=== PATIENT | male | born 1950 | race Caucasian/White ===

== ENCOUNTER 2023-09-15 05:35 | Day surgery (SDC) | payer OTHER ==
[2023-08-28 12:32] LABS: HEMATOCRIT 40.6 % (39.0-48.0); HEMOGLOBIN 13.9 g/dL (13-16.00); MEAN CELL VOLUME 93.7 fL (80.0-100.00); MEAN CORPUSCULAR HEMOGLOBIN 32.2 pg (27.00-32.0); MEAN CORPUSCULAR HGB CONC 34.3 g/dl (32.0-36.0); PLATELET COUNT 208 K/uL (150-450); RED BLOOD COUNT 4.33 M/uL (4.00-6.00)
[2023-08-28 12:40] LABS: INR 1.01; PARTIAL THROMBOPLASTIN TIME 25.1 SECONDS (22.0-34.0); PROTHROMBIN TIME 10.6 SECONDS (9.0-11.5)
[2023-08-28 12:52] LABS: CALCIUM 9.1 mg/dL (8.5-10.1); CREATININE SERUM 0.89 mg/dL (0.70-1.30); GFR 84.26; POTASSIUM 4.44 mEq/L (3.5-5.1)
[2023-08-28 13:18] LABS: URINE APPEARANCE Clear; URINE BILIRRUBIN Negative (NEGATIVE); URINE BLOOD Moderate; URINE COLOR Yellow; URINE GLUCOSE Negative (NEGATIVE); URINE LEUKOCYTE Trace; URINE NITRATE Negative; URINE PROTEIN Negative (NEGATIVE); URINE UROBILINOGEN 0.2 E.U./dl
[2023-08-28 13:19] LABS: URINE BACTERIA 13.8 uL (0.0-1933); URINE RBC 203.2 uL (0.0-20.8); URINE WBC 15.7 uL (0.0-23.2)
[2023-08-28 13:25] LABS: URINE EPITHELIAL CELLS 1.2 uL (0.0-38.8)
[~2023-09-15 05:35] MED LIST: ALEVE220 M1 PO; CEFADROXIL500 MG PO; FLORANEX TABLE1 EACH PO; PERCOCET 5/3251 TAB PO; TAMS0.4C PO
[2023-09-15] MEDS ORDERED: CHLORHEXIDINE GLUCONATE 120 ML BOTTLE TOP ONE (12:00)
[2023-09-15] MEDS ORDERED: GENTAMICIN SULFATE 40 MG/ML VIAL IV ONE (12:00)
== END 2023-09-15 16:35 | disposition home or self-care (01) ==
LOC: CIR.AMB 05:35
PROVIDERS: ATTEND Urology
DX: N40.1 Benign prostatic hyperplasia with lower urinary tract symptoms (principal); R33.9 Retention of urine, unspecified

== ENCOUNTER 2023-10-08 19:19 | Emergency (ER) | payer OTHER ==
[~2023-10-08] VITALS: Ht 182.9 cm; Wt 90.7 kg
[2023-10-08] MEDS ORDERED: TICAGRELOR 90 MG TABLET PO ONE (19:30)
[2023-10-08] MEDS ORDERED: 0.9 % SODIUM CHLORIDE 1,000 ML IV SCH (19:30)
[2023-10-08] MEDS ORDERED: MORPHINE SULFATE 4 MG/ML VIAL IV ONE (19:30)
[2023-10-08] MEDS ORDERED: ASPIRIN 325 MG TABLET PO ONE (19:30)
[2023-10-08] MEDS ORDERED: NITROGLYCERIN IN 5 % DEXTROSE 250 ML IV SCH (19:30)
[2023-10-08 19:59] LABS: HEMATOCRIT 41.2 % (39.0-48.0); HEMOGLOBIN 14.2 g/dL (13-16.00); MEAN CELL VOLUME 94.5 fL (80.0-100.00); MEAN CORPUSCULAR HEMOGLOBIN 32.6 pg (27.00-32.0); MEAN CORPUSCULAR HGB CONC 34.5 g/dl (32.0-36.0); PLATELET COUNT 271 K/uL (150-450); RED BLOOD COUNT 4.36 M/uL (4.00-6.00); RED CELL DISTRIBUTION WIDTH 12.6 % (11.5-14.5)
[2023-10-08] MEDS ORDERED: HEPARIN SODIUM,PORCINE 5,000 UNITS/ML VIAL IV ONE (20:00)
[2023-10-08 20:19] LABS: INR 0.99; PARTIAL THROMBOPLASTIN TIME 21.9 SECONDS (22.0-34.0); PROTHROMBIN TIME 10.4 SECONDS (9.0-11.5)
[2023-10-08 20:24] LABS: ALBUMIN 4.2 gm/dL (3.4-5.0); BILIRUBIN TOTAL 0.5 mg/dL (0.3-1.2); CREATININE SERUM 0.92 mg/dL (0.70-1.30); GFR 80.87; GLOBULINA 3.5 G/DL (2.4-3.5); POTASSIUM 3.36 mEq/L (3.5-5.1); TOTAL PROTEIN 7.7 gm/dL (6.4-8.2)
[2023-10-08] MEDS ORDERED: NITROGLYCERIN 0.4 MG TAB.SUBL SL SCH (20:30)
== END 2023-10-08 20:29 | disposition designated cancer center or children's hospital (05) ==
LOC: ER 19:19
PROVIDERS: General Practice
DX: I21.9 Acute myocardial infarction, unspecified (principal); R07.89 Other chest pain; I10 Essential (primary) hypertension
CPT/HCPCS: 36415; 71045; 93041; 96365; 99285; J1644; J2270; J3490; J7030